=== PATIENT | male | born 1945 | race Caucasian/White ===

== ENCOUNTER 2024-03-09 19:17 | Inpatient (IN) | payer OTHER, MEDICAID ==
[~2024-03-09] VITALS: Ht 152.4 cm; Wt 49.9 kg
[2024-03-09 19:30] VITALS: BP_SYST 104; PULSE 59; RESP 13; TEMP 98.9; O2SAT 100
[2024-03-09 20:13] LABS: BASOPHILS # (AUTO) 0.1 K/uL (0.0-0.2); BASOPHILS % (AUTO) 0.6 % (0.0-2.0); EOSINOPHILS # (AUTO) 0.4 K/uL (0.0-0.4); EOSINOPHILS % (AUTO) 4.1 % (0.0-4.0); HEMATOCRIT 22.7 % (36-54); HEMOGLOBIN 7.8 g/dL (14.0-18.0); LYMPHOCYTES # (AUTO) 1.6 K/uL (1.0-5.5); LYMPHOCYTES % (AUTO) 17.5 % (20.5-51.5); MEAN CORPUSCULAR HEMOGLOBIN 34 pg (27-31); MEAN CORPUSCULAR HGB CONC 34 % (32-36); MEAN CORPUSCULAR VOLUME 99 fL (79.0-98.0); MONOCYTES # (AUTO) 0.6 K/uL (0.0-1.0); NEUTROPHILS # (AUTO) 6.4 K/uL (1.8-7.7); NEUTROPHILS % (AUTO) 70.8 % (40.0-70.0); PLATELET COUNT (AUTO) 197 K/uL (130-430); RED CELL DISTRIBUTION WIDTH 20.1 % (9.0-15.0)
[2024-03-09 20:37] LABS: ALANINE AMINOTRANSFERASE 5 U/L (12-78); ALBUMIN 2.4 g/dL (3.4-4.8); ANION GAP 4 (5-15); ASPARTATE AMINOTRANSFERASE 11 U/L (10-37); BILIRUBIN,DIRECT 0.1 mg/dL (0.0-0.3); CALCIUM 8.8 mg/dL (8.4-11.0); CARBON DIOXIDE 34 mmol/L (23-29); CHLORIDE 104 mmol/L (98-107); CREATININE 1.83 mg/dL (0.55-1.30); GLUCOSE 129 mg/dL (74-106); SODIUM SERUM 142 mmol/L (136-145); TOTAL BILIRUBIN 0.4 mg/dL (0.0-1.0); TOTAL PROTEIN, SERUM 6.3 g/dL (6.4-8.3); UREA NITROGEN, BLOOD 70 mg/dL (8-21)
[2024-03-09] MEDS: NACL 0.9% 2,000 ML IV ONE (20:44)
[2024-03-09 21:37] LABS: INR 1.1 (0.80-1.20); PROTHROMBIN TIME 11.4 SECS (9.5-12.5)
[2024-03-09 23:22] LABS: BILIRUBIN,URINE NEGATIVE (NEGATIVE); COLOR,URINE YELLOW (YELLOW); GLUCOSE,URINE NEGATIVE (NEGATIVE); KETONES,URINE NEGATIVE (NEGATIVE); LEUKOCYTE ESTERASE ,URINE 2+ (NEGATIVE); NITRITE, URINE NEGATIVE (NEGATIVE); PROTEIN URINE NEGATIVE (NEGATIVE); UROBILINOGEN,URINE 0.2 (0.2-1.0)
[2024-03-09 23:44] LABS: BLOOD, URINE TRACE (NEGATIVE); CLARITY/URINE SLIGHTLY CLOUDY (CLEAR)
[2024-03-09 23:47] LABS: BACTERIA,URINE FEW /HPF (None Seen)
[2024-03-10] VITALS (16 sets, daily range): BP systolic 113–150; PULSE 49–58; RESP 18–21; TEMP 97.9–98.4; O2SAT 98–100
[2024-03-10] MEDS ORDERED: ONDANSETRON HCL 4 MG/2 ML VIAL IVP PRN (00:15)
[2024-03-10] MEDS ORDERED: IPRATROPIUM/ALBUTEROL SULFATE 3 ML AMPUL.NEB (DUONEB) INH PRN (00:15)
[2024-03-10 00:25] LABS: INFLUENZA TYPE A NEGATIVE (NEGATIVE); INFLUENZA TYPE B NEGATIVE (NEGATIVE)
[2024-03-10] MEDS: cefTRIAXone 1 GM IVPB PREMIX 50 ML IV ONE (01:37)
[2024-03-10] MEDS: NACL 0.9% 1,000 ML IV SCH (01:38)
[2024-03-10] MEDS ORDERED: BRIMONIDINE TARTRATE BOTH EYES (05:23)
[2024-03-10] MEDS ORDERED: SUCR1TAB2 GT (05:23)
[2024-03-10] MEDS ORDERED: AMIO200T66 PO (05:23)
[2024-03-10] MEDS ORDERED: DORZOLAMIDE BOTH EYES (05:23)
[2024-03-10] MEDS ORDERED: IPRA4AER INH (05:23)
[2024-03-10] MEDS ORDERED: FURO10VI27 GT (05:23)
[2024-03-10] MEDS ORDERED: FER300L PO (05:23)
[2024-03-10] MEDS ORDERED: AMIN30LI2 GT (05:23)
[2024-03-10] MEDS ORDERED: CARB1TAB33 PO (05:23)
[2024-03-10] MEDS ORDERED: VITD400 GT (05:23)
[2024-03-10] MEDS ORDERED: LOSA-413 GT (05:23)
[2024-03-10] MEDS: PIPERACILLIN/TAZO 4.5 GM in NS 100 ML IV SCH (05:31)
[2024-03-10] MEDS ORDERED: PIPERACILLIN/TAZOBACTAM 4.5 GM/VIAL (ZOSYN) IV ONE (05:31)
[2024-03-10] MEDS ORDERED: DORZ10DR20 OP (10:06)
[2024-03-10] MEDS ORDERED: BRIM15DR8 EACH EYE (10:10)
[2024-03-10] MEDS: APIXABAN 2.5 MG TABLET GT SCH (11:30)
[2024-03-10] MEDS: CARBIDOPA/LEVODOPA 25/100 MG TABLET PO SCH (23:13)
[2024-03-11] VITALS (16 sets, daily range): BP systolic 113–150; PULSE 53–61; RESP 18–20; TEMP 97.5–98.9; O2SAT 96–100
[2024-03-11 08:46] LABS: BASOPHILS # (AUTO) 0.1 K/uL (0.0-0.2); EOSINOPHILS # (AUTO) 0.4 K/uL (0.0-0.4); EOSINOPHILS % (AUTO) 6.3 % (0.0-4.0); HEMATOCRIT 24.2 % (36-54); LYMPHOCYTES # (AUTO) 1.3 K/uL (1.0-5.5); LYMPHOCYTES % (AUTO) 20.8 % (20.5-51.5); MEAN CORPUSCULAR HEMOGLOBIN 33 pg (27-31); MEAN CORPUSCULAR HGB CONC 33 % (32-36); MEAN CORPUSCULAR VOLUME 100 fL (79.0-98.0); MONOCYTES # (AUTO) 0.6 K/uL (0.0-1.0); MONOCYTES % (AUTO) 9.3 % (1.7-9.3); NEUTROPHILS # (AUTO) 3.9 K/uL (1.8-7.7); NEUTROPHILS % (AUTO) 62.6 % (40.0-70.0); PLATELET COUNT (AUTO) 188 K/uL (130-430); RED BLOOD CELL COUNT(AUTO) 2.42 MIL/uL (4.2-6.2); RED CELL DISTRIBUTION WIDTH 19.4 % (9.0-15.0); WHITE BLOOD COUNT (AUTO) 6.2 K/uL (4.8-10.8)
[2024-03-11 08:54] LABS: INR 1.1 (0.80-1.20); PROTHROMBIN TIME 11.9 SECS (9.5-12.5)
[2024-03-11] MEDS ORDERED: IPRATROPIUM/ALBUTEROL SULFATE 120 PUFFS/4 GM INH INH SCH (09:00)
[2024-03-11] MEDS ORDERED: FUROSEMIDE 40 MG/4 ML VIAL IVP SCH (09:00)
[2024-03-11 09:08] LABS: ALANINE AMINOTRANSFERASE 8 U/L (12-78); ALBUMIN 2.4 g/dL (3.4-4.8); ANION GAP 10 (5-15); ASPARTATE AMINOTRANSFERASE 9 U/L (10-37); CALCIUM 8.6 mg/dL (8.4-11.0); CARBON DIOXIDE 28 mmol/L (23-29); CHLORIDE 111 mmol/L (98-107); CHOLESTEROL 79 mg/dL (<200); CREATININE 1.61 mg/dL (0.55-1.30); GLUCOSE 121 mg/dL (74-106); HDL CHOLESTEROL 33 mg/dL (>45); POTASSIUM 3.5 mmol/L (3.5-5.1); SODIUM SERUM 149 mmol/L (136-145); THYROID STIMULATING HORMONE 4.28 uIu/mL (0.34-4.82); TOTAL BILIRUBIN 0.4 mg/dL (0.0-1.0); TRIGLYCERIDES 92 mg/dL (30-150); UREA NITROGEN, BLOOD 52 mg/dL (8-21)
[2024-03-11] MEDS: LOSARTAN POTASSIUM 50 MG TABLET (COZAAR) GT SCH (09:15)
[2024-03-11] MEDS: BRIMONIDINE TARTRATE 0.2% 5 mL EYE DROPS EACH EYE SCH (09:15)
[2024-03-11 09:30] LABS: FREE T4 (FREE THYROXINE) 1.3 ng/dL (0.6-1.6); THYROID STIMULATING HORMONE 3.85 uIu/mL (0.34-4.82)
[2024-03-12] VITALS (16 sets, daily range): BP systolic 99–126; PULSE 53–60; RESP 16–20; TEMP 97.6–98.9; O2SAT 97–100
[2024-03-12 07:15] LABS: ALBUMIN 2.2 g/dL (3.4-4.8); ANION GAP 8 (5-15); ASPARTATE AMINOTRANSFERASE 10 U/L (10-37); CALCIUM 8.5 mg/dL (8.4-11.0); CARBON DIOXIDE 28 mmol/L (23-29); CHLORIDE 114 mmol/L (98-107); CREATININE 1.44 mg/dL (0.55-1.30); GLUCOSE 116 mg/dL (74-106); POTASSIUM 3.7 mmol/L (3.5-5.1); SODIUM SERUM 150 mmol/L (136-145); TOTAL BILIRUBIN 0.3 mg/dL (0.0-1.0); TOTAL PROTEIN, SERUM 5.8 g/dL (6.4-8.3); UREA NITROGEN, BLOOD 42 mg/dL (8-21)
[2024-03-12 07:18] LABS: BASOPHILS # (AUTO) 0.1 K/uL (0.0-0.2); EOSINOPHILS # (AUTO) 0.3 K/uL (0.0-0.4); EOSINOPHILS % (AUTO) 5.6 % (0.0-4.0); HEMATOCRIT 22.7 % (36-54); HEMOGLOBIN 7.6 g/dL (14.0-18.0); LYMPHOCYTES # (AUTO) 1.4 K/uL (1.0-5.5); LYMPHOCYTES % (AUTO) 24.5 % (20.5-51.5); MEAN CORPUSCULAR HEMOGLOBIN 33 pg (27-31); MEAN CORPUSCULAR HGB CONC 33 % (32-36); MEAN CORPUSCULAR VOLUME 100 fL (79.0-98.0); MONOCYTES # (AUTO) 0.6 K/uL (0.0-1.0); MONOCYTES % (AUTO) 10.6 % (1.7-9.3); NEUTROPHILS # (AUTO) 3.3 K/uL (1.8-7.7); NEUTROPHILS % (AUTO) 58.3 % (40.0-70.0); PLATELET COUNT (AUTO) 171 K/uL (130-430); RED BLOOD CELL COUNT(AUTO) 2.28 MIL/uL (4.2-6.2); RED CELL DISTRIBUTION WIDTH 20.2 % (9.0-15.0); WHITE BLOOD COUNT (AUTO) 5.7 K/uL (4.8-10.8)
[2024-03-12 08:06] LABS: ALANINE AMINOTRANSFERASE 6 U/L (12-78)
[2024-03-12] MEDS: DORZOLAMIDE 2% OPHTHALMIC SOLN 5ML OP SCH (12:19)
[2024-03-13] VITALS (16 sets, daily range): BP systolic 103–168; PULSE 53–64; RESP 20–22; TEMP 97.9–99.2; O2SAT 96–100
[2024-03-13] MEDS: CEFEPIME 2 GM in D5W 100 ML IV SCH (17:44)
[2024-03-13] MEDS: ACETAMINOPHEN 500 MG TABLET GT PRN (20:12)
[2024-03-13] MEDS: D5/0.45 NS 1,000 ML IV SCH (23:09)
[2024-03-14] VITALS (19 sets, daily range): BP systolic 101–145; PULSE 52–65; RESP 16–22; TEMP 97.8–99; O2SAT 99–100
[2024-03-14 08:56] LABS: BASOPHILS # (AUTO) 0.1 K/uL (0.0-0.2); BASOPHILS % (AUTO) 1.2 % (0.0-2.0); EOSINOPHILS # (AUTO) 0.5 K/uL (0.0-0.4); EOSINOPHILS % (AUTO) 8.5 % (0.0-4.0); HEMATOCRIT 23.3 % (36-54); HEMOGLOBIN 7.6 g/dL (14.0-18.0); LYMPHOCYTES # (AUTO) 1.2 K/uL (1.0-5.5); LYMPHOCYTES % (AUTO) 22.3 % (20.5-51.5); MEAN CORPUSCULAR HEMOGLOBIN 33 pg (27-31); MEAN CORPUSCULAR HGB CONC 33 % (32-36); MEAN CORPUSCULAR VOLUME 100 fL (79.0-98.0); MONOCYTES # (AUTO) 0.5 K/uL (0.0-1.0); MONOCYTES % (AUTO) 8.9 % (1.7-9.3); NEUTROPHILS # (AUTO) 3.2 K/uL (1.8-7.7); NEUTROPHILS % (AUTO) 59.1 % (40.0-70.0); PLATELET COUNT (AUTO) 158 K/uL (130-430); RED BLOOD CELL COUNT(AUTO) 2.32 MIL/uL (4.2-6.2); RED CELL DISTRIBUTION WIDTH 19.9 % (9.0-15.0); WHITE BLOOD COUNT (AUTO) 5.5 K/uL (4.8-10.8)
[2024-03-14 09:34] LABS: ALANINE AMINOTRANSFERASE 7 U/L (12-78); ALBUMIN 2.1 g/dL (3.4-4.8); ANION GAP 8 (5-15); ASPARTATE AMINOTRANSFERASE 11 U/L (10-37); CALCIUM 8.1 mg/dL (8.4-11.0); CARBON DIOXIDE 26 mmol/L (23-29); CHLORIDE 115 mmol/L (98-107); CREATININE 1.21 mg/dL (0.55-1.30); GLUCOSE 133 mg/dL (74-106); POTASSIUM 3.5 mmol/L (3.5-5.1); SODIUM SERUM 149 mmol/L (136-145); TOTAL BILIRUBIN 0.2 mg/dL (0.0-1.0); TOTAL PROTEIN, SERUM 5.7 g/dL (6.4-8.3); UREA NITROGEN, BLOOD 32 mg/dL (8-21)
[2024-03-14] MEDS: THEOPHYLLINE ANHYDROUS 80 MG/15 ML UDC PO SCH (09:56)
[2024-03-15] VITALS (15 sets, daily range): BP systolic 122–134; PULSE 59–67; RESP 16–23; TEMP 97.2–97.8; O2SAT 97–100
[2024-03-15 06:58] LABS: BASOPHILS % (AUTO) 0.5 % (0.0-2.0); EOSINOPHILS # (AUTO) 0.4 K/uL (0.0-0.4); EOSINOPHILS % (AUTO) 6.2 % (0.0-4.0); HEMATOCRIT 24.7 % (36-54); HEMOGLOBIN 8.1 g/dL (14.0-18.0); LYMPHOCYTES % (AUTO) 14.6 % (20.5-51.5); MEAN CORPUSCULAR HEMOGLOBIN 33 pg (27-31); MEAN CORPUSCULAR HGB CONC 33 % (32-36); MEAN CORPUSCULAR VOLUME 100 fL (79.0-98.0); MONOCYTES # (AUTO) 0.6 K/uL (0.0-1.0); MONOCYTES % (AUTO) 7.8 % (1.7-9.3); NEUTROPHILS # (AUTO) 5.1 K/uL (1.8-7.7); NEUTROPHILS % (AUTO) 70.9 % (40.0-70.0); PLATELET COUNT (AUTO) 172 K/uL (130-430); RED BLOOD CELL COUNT(AUTO) 2.46 MIL/uL (4.2-6.2); RED CELL DISTRIBUTION WIDTH 19.3 % (9.0-15.0); WHITE BLOOD COUNT (AUTO) 7.2 K/uL (4.8-10.8)
[2024-03-15 07:26] LABS: ALANINE AMINOTRANSFERASE 8 U/L (12-78); ANION GAP 11 (5-15); ASPARTATE AMINOTRANSFERASE 12 U/L (10-37); CALCIUM 8.5 mg/dL (8.4-11.0); CARBON DIOXIDE 24 mmol/L (23-29); CHLORIDE 113 mmol/L (98-107); GLUCOSE 119 mg/dL (74-106); SODIUM SERUM 148 mmol/L (136-145); TOTAL BILIRUBIN 0.3 mg/dL (0.0-1.0); TOTAL PROTEIN, SERUM 5.9 g/dL (6.4-8.3); UREA NITROGEN, BLOOD 32 mg/dL (8-21)
[2024-03-15] MEDS ORDERED: THEO80SO4 PO (14:33)
== END 2024-03-15 19:00 | DRG 870 ==
LOC: SED 19:17 → STU 03-10 00:07
PROVIDERS: ADMIT Family Medicine; ATTEND Family Medicine
PROC: 5A1955Z Respiratory Ventilation, Greater than 96 Consecutive Hours (ICD-10-PCS; principal; 2024-03-10)
DX: A41.9 Sepsis, unspecified organism (principal); J18.9 Pneumonia, unspecified organism; Z99.11 Dependence on respirator [ventilator] status; E87.0 Hyperosmolality and hypernatremia; N39.0 Urinary tract infection, site not specified; N17.9 Acute kidney failure, unspecified; J96.10 Chronic respiratory failure, unspecified whether with hypoxia or hypercapnia; L89.159 Pressure ulcer of sacral region, unspecified stage; D63.1 Anemia in chronic kidney disease; R13.10 Dysphagia, unspecified; I50.9 Heart failure, unspecified; G20.A1 Parkinson's disease without dyskinesia, without mention of fluctuations; N18.9 Chronic kidney disease, unspecified; E11.22 Type 2 diabetes mellitus with diabetic chronic kidney disease; E86.0 Dehydration; I95.9 Hypotension, unspecified; I48.91 Unspecified atrial fibrillation; H40.9 Unspecified glaucoma; G31.84 Mild cognitive impairment of uncertain or unknown etiology; Y95 Nosocomial condition; Z74.01 Bed confinement status; Z93.1 Gastrostomy status; Z91.048 Other nonmedicinal substance allergy status; Z86.718 Personal history of other venous thrombosis and embolism; Z79.899 Other long term (current) drug therapy
CPT/HCPCS: 36415; 71045; 80048; 80053; 80061; 80076; 81000; 81001; 81015; 83605; 83880; 84439; 84443; 84484; 85025; 85610; 85730; 87040; 87070; 87081; 87086; 87186; 87205; 93005; 93306; 94002; 94003; 94070; 94640; 94660; 94760; 99285; G0378; J0692; J0696; J2543; J7030; J7060